=== PATIENT | male | born 1950 | race Caucasian/White ===

== ENCOUNTER 2017-01-03 07:56 | Day surgery (SDC) | payer MEDICARE, BC ==
--- NOTE | ~2017-01-03 | EGD ---
EGD REPORT [facility] [address] [place] [address] NAME: LEONARDO ESPINO : [birth year] STATUS : REG [facility] [place] PAT#: [id number] AGE: 66 ADM/REG DATE : 01/03/17 MR#: [id number] REPORT SERV DATE: 01/03/17 DICTATED BY: KAREN JOHNSTON DATE: 01/03/17 REPORT STATUS : Draft TRANSCRIBED BY: [employer] DATE: 01/03/17 [facility] Patient Name: Leonardo Espino Date of : 1950 Attending MD: DALTON JOHNSTON MD Procedure Date No Time: 01/03/2017 Procedure: Colonoscopy Indications: Screening for colorectal malignant neoplasm Referring MD: VIOLETTE TADEO Medicines: See the Anesthesia note for documentation of the administered medications Complications: No immediate complications. Estimated blood loss: None. Procedure: Pre-Anesthesia Assessment: - ASA Grade Assessment: III - A patient with severe systemic disease. After I obtained informed consent, the scope was passed under direct vision. Throughout the procedure, the patient's blood pressure, pulse, and oxygen saturations were monitored continuously. The [facility] [id number] was introduced through the anus and advanced to the cecum, identified by appendiceal orifice and ileocecal valve. The ileocecal valve, appendiceal orifice and rectum were photographed. The entire colon was examined. The colonoscopy was technically difficult and complex due to significant looping, a tortuous colon and the patient's body habitus. Successful completion of the procedure was aided by applying abdominal pressure. The patient tolerated the procedure well. The quality of the bowel preparation was fair. Findings: The perianal and digital rectal examinations were normal. A sessile polyp was found in the mid transverse colon. The polyp was diminutive in size. The polyp was removed with a piecemeal technique using a cold biopsy forceps. Resection and retrieval were complete. A few medium-mouthed diverticula were found in the entire colon. The colon (entire examined portion) was significantly tortuous. Non-bleeding internal hemorrhoids were found during retroflexion and were Grade I (internal hemorrhoids that do not prolapse). No other significant abnormalities were identified in a careful examination of the remainder of the colon. Impression: - One diminutive polyp in the mid transverse colon. Resected and retrieved. - Diverticulosis in the entire examined colon. EGD REPORT [address] [place]. [address] NAME: LEONARDO ESPINO : [birth year] STATUS : REG [facility]#: [id number] AGE: 66 ADM/REG DATE : 01/03/17 MR#: [id number] REPORT SERV DATE: 01/03/17 DICTATED BY: KAREN JOHNSTON DATE: 01/03/17 REPORT STATUS : Draft TRANSCRIBED BY: [employer] DATE: 01/03/17 - Tortuous colon. - Non-bleeding internal hemorrhoids. Recommendation: - Patient has a contact number available for emergencies. The signs and symptoms of potential delayed complications were discussed with the patient. Return to normal activities tomorrow. Written discharge instructions were provided to the patient. - High fiber diet indefinitely. - Discharge patient to home. - Continue present medications. - Await pathology results. - Repeat colonoscopy in 2 years for surveillance. 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 All rights reserved. The codes documented in this report are preliminary and upon ur coordinator review may be revised to meet current compliance requirements. DALTON JOHNSTON MD 01/03/2017 10:10 AM This report has been signed electronically. Number of Addenda: 0 Note Initiated On: 01/03/2017 9:30 AM Scope Withdrawal Time 0 hours 14 minutes 31 seconds [address] [place] [address]
[~2017-01-03 07:56] MED LIST: ACCU20 PO; ACCURETI1 PO; AMARYL4 PO; CITRACAL PO; EFFEXOR XR150 MG PO; FORTAMET500 MG PO; GLUCOPHAGE1000 MG PO; LOP25 PO; MULTIVIT/MIN PO; VITAMIN B-122500 MCG SL; VITAMIN D1000 UNI1 PO; ZOCOR40 PO
== END 2017-01-03 23:59 | disposition home or self-care (01) ==
LOC: DMU 07:56
PROVIDERS: Internal Medicine Gastroenterology
PROC: 0DBL8ZZ Excision of Transverse Colon, Via Natural or Artificial Opening Endoscopic (ICD-10-PCS; principal; 2017-01-03 09:30)
DX: Z12.11 Encounter for screening for malignant neoplasm of colon (principal); K63.5 Polyp of colon; K64.0 First degree hemorrhoids; K57.30 Diverticulosis of large intestine without perforation or abscess without bleeding; Q43.8 Other specified congenital malformations of intestine; I10 Essential (primary) hypertension; E11.9 Type 2 diabetes mellitus without complications; F41.9 Anxiety disorder, unspecified; G47.33 Obstructive sleep apnea (adult) (pediatric); Z98.84 Bariatric surgery status; Z88.5 Allergy status to narcotic agent; M53.3 Sacrococcygeal disorders, not elsewhere classified; F32.9 Major depressive disorder, single episode, unspecified; Z79.899 Other long term (current) drug therapy; Z79.84 Long term (current) use of oral hypoglycemic drugs
CPT/HCPCS: 82962; 88305